=== PATIENT | female | born 2000 | race Caucasian/White ===

== ENCOUNTER 2021-12-12 10:49 | Inpatient (IN) ==
[2021-12-12] MEDS ORDERED: Naloxone 0.4 MG/ML INJ IVP PRN (11:58)
[2021-12-12] MEDS ORDERED: Metoclopramide 10 MG/2 ML VIAL IVP PRN (11:58)
[2021-12-12] MEDS ORDERED: Famotidine 20 MG/2 ML VIAL IVP PRN (11:58)
[2021-12-12 13:09] LABS: Basophils % 0.3 %; Eosinophils % 0.6 %; Hematocrit 33.3 % (35.3-44.9); Hemoglobin 10.9 g/dL (11.5-15.4); Immature Granulocytes % 0.4 % (0-4); Lymphocytes # 1.6 K/mcL (0.6-4.6); Lymphocytes % 23.4 %; Mean Corpuscular HGB Conc 32.7 g/dL (31.6-35.5); Mean Corpuscular Hemoglobin 27.5 pg (28.0-33.3); Mean Corpuscular Volume 83.9 fL (83.0-100.0); Monocytes # 0.7 K/mcL (0.0-1.3); Monocytes % 9.9 %; Neutrophils # 4.4 K/mcL (1.6-8.9); Platelet Count 107 K/mcL (140-400); Red Blood Count 3.97 M/mcL (3.82-4.97); Red Cell Distribution Width 13.7 % (11.5-14.5); Segmented Neutrophils % 65.4 %; White Blood Count 6.8 K/mcL (4.3-11.1)
[2021-12-12 13:36] LABS: Amphetamine Screen,Urine Negative ng/mL (Cutoff=1000); Barbiturate Screen,Urine Negative ng/mL (Cutoff=200); Benzodiazepines Screen,Urine Negative ng/mL (Cutoff=200); Cannabinoid Screen,Urine Negative ng/mL (Cutoff = 50); Cocaine Screen,Urine Negative ng/mL (Cutoff= 300); Opiate Screen,Urine Negative ng/mL (Cutoff=300); Phencyclidine Screen,Urine Negative ng/mL (Cutoff=25)
[2021-12-12 13:42] LABS: Influenza A PCR Negative (Negative); Influenza B PCR Negative (Negative); Resp. Syncytial Virus PCR Negative (Negative)
[2021-12-12 13:53] LABS: SARS-CoV-2 by PCR (In House) Negative (Negative)
[2021-12-12] MEDS: miSOPROStoL 25 MCG TABLET PO SCH ×2 (14:48→19:00)
[2021-12-12] MEDS ORDERED: EPHEDrine 50 MG/ML VIAL IVP PRN (15:43)
[2021-12-12] MEDS ORDERED: *HR* Nalbuphine 10 MG/ML AMPUL IV PRN (18:35)
[2021-12-12] MEDS: Ringers Solution, Lactated 1,000 ML IVC SCH ×2 (19:11→22:19)
[2021-12-12] MEDS ORDERED: Ropivacaine/PF 0.2% 20 ML VIAL ONE (21:58)
[2021-12-12] MEDS ORDERED: *HR* FentaNYL (PF) 100 MCG/2 ML VIAL ONE (21:58)
[2021-12-13] MEDS ORDERED: Oxytocin 30 UNIT/503 ML BAG IVC SCH ×2 (03:45→17:43)
[2021-12-13] MEDS ORDERED: Ondansetron 4 MG/2 ML VIAL IVP PRN (04:11)
[2021-12-13] MEDS: Epidural Premix (fent/bupiv) 110 ML EP SCH ×2 (05:48→12:31)
[2021-12-13] MEDS: Ringers Solution, Lactated 1,000 ML IVC SCH ×2 (05:56→10:33)
[2021-12-13] MEDS ORDERED: *HR* FentaNYL (PF) 100 MCG/2 ML VIAL ONE (08:57)
[2021-12-13] MEDS ORDERED: Ropivacaine/PF 0.2% 20 ML VIAL ONE (08:57)
[2021-12-13] MEDS ORDERED: Lanolin 7 G OINT...G. TP PRN (17:43)
[2021-12-13] MEDS ORDERED: Rho Immune Globulin 1,500 UNIT SYRINGE IM PRN (17:43)
[2021-12-13] MEDS ORDERED: Measles/Mumps/Rubella Vacc 0.5 ML VIAL SQ PRN (17:43)
[2021-12-13] MEDS ORDERED: Benzocaine/Menthol 56 GM AEROSOL SPRAY TP PRN (17:43)
[2021-12-13] MEDS ORDERED: Ondansetron ODT 4 MG TAB.RAPDIS SL PRN (17:43)
[2021-12-13 20:37] VITALS: O2SAT 97
[2021-12-13] MEDS: Ibuprofen 600 MG TABLET PO SCH (20:46)
[2021-12-13] MEDS: Acetaminophen 325 MG TABLET PO SCH (20:46)
[2021-12-14 05:05] LABS: Basophils % 0.2 %; Eosinophils # 0.1 K/mcL (0.0-0.6); Eosinophils % 0.7 %; Hematocrit 29.4 % (35.3-44.9); Hemoglobin 9.7 g/dL (11.5-15.4); Immature Granulocytes % 0.6 % (0-4); Lymphocytes # 2.2 K/mcL (0.6-4.6); Lymphocytes % 20.6 %; Mean Corpuscular Hemoglobin 27.5 pg (28.0-33.3); Mean Corpuscular Volume 83.3 fL (83.0-100.0); Mean Platelet Volume 11.7 fL (9.4-12.4); Monocytes # 1.1 K/mcL (0.0-1.3); Monocytes % 10.2 %; Platelet Count 119 K/mcL (140-400); Red Blood Count 3.53 M/mcL (3.82-4.97); Red Cell Distribution Width 13.8 % (11.5-14.5); Segmented Neutrophils % 67.7 %
[2021-12-14 05:11] LABS: Neutrophils # 7.2 K/mcL (1.6-8.9); White Blood Count 10.7 K/mcL (4.3-11.1)
[2021-12-14 06:29] VITALS: BP 110/74; PULSE 82; TEMP 98.3
[2021-12-14] MEDS: Acetaminophen 325 MG TABLET PO SCH (06:31)
[2021-12-14] MEDS: Ibuprofen 600 MG TABLET PO SCH ×2 (06:32→12:26)
[2021-12-14] MEDS ORDERED: NON-FORMULARY MEDICATION 1 EACH EACH (Prenat 115/Iron Fum/Folic/Dss [Prenatal 19 Tablet] 1 PO SCH (09:00)
[2021-12-14] MEDS ORDERED: Prenatal Vit/FA 1 EACH TABLET PO SCH (09:00)
== END 2021-12-14 16:00 | disposition home or self-care (01) | DRG 807 ==
LOC: 1NENULAB 10:49 → 1NENUOBS 12-13 17:43
PROVIDERS: ADMIT Student in an Organized Health Care Education/Training Program; ATTEND Student in an Organized Health Care Education/Training Program